=== PATIENT | female | born 1985 | race Hispanic/Latino ===

== ENCOUNTER 2019-10-31 05:01 | Inpatient (IN) ==
[2019-10-31] MEDS ORDERED: ZOFRAN IV PRN (05:03)
[2019-10-31] MEDS ORDERED: PEPCID PO PRN ×2 (05:03)
[2019-10-31] MEDS ORDERED: REGLAN PO PRN (05:03)
[2019-10-31] MEDS ORDERED: TYLENOL PO PRN (05:03)
[2019-10-31] MEDS ORDERED: PEPCID IV PRN (05:03)
[2019-10-31] MEDS ORDERED: KEFZOL 2 GM/D5W 2 GM/50 ML IVPB IV PRN (05:03)
[2019-10-31] MEDS ORDERED: STADOL IV PRN (05:03)
[2019-10-31] MEDS ORDERED: MINERAL OIL TOP PRN (05:06)
[2019-10-31] MEDS ORDERED: XYLOCAINE-MPF 1% INJ PRN ×2 (05:06→15:09)
[2019-10-31] MEDS ORDERED: SODIUM CHLORIDE 0.9% INJ SCH (05:15)
[2019-10-31] MEDS: LR 1,000 ML IV SCH ×4 (05:40→10:30)
[2019-10-31 06:02] LABS: URINE SOURCE VOIDED
[2019-10-31 06:16] LABS: BILIRUBIN URINE NEGATIVE (NEGATIVE); BLOOD URINE NEGATIVE (NEGATIVE); COLOR YELLOW; GLUCOSE URINE NEGATIVE (NEGATIVE); KETONE URINE NEGATIVE (NEGATIVE); LEUKOCYTES URINE NEGATIVE (NEGATIVE); NITRITE URINE NEGATIVE (NEGATIVE); PROTEIN URINE NEGATIVE (NEGATIVE); SP GRAVITY URINE 1.013; TURBIDITY URINE CLEAR (CLEAR); UROBILINOGEN URINE NORMAL (NORMAL)
[2019-10-31 06:19] LABS: UR AMPHETAMINES QUAL NONE DETECTED (NONE DETECT); UR BARBITUATES QUAL NONE DETECTED (NONE DETECT); UR BENZODIAZEPIN QUAL NONE DETECTED (NONE DETECT); UR CANNABINOIDS QUAL NONE DETECTED (NONE DETECT); UR COCAINE QUAL NONE DETECTED (NONE DETECT); UR METHADONE QUAL NONE DETECTED (NONE DETECT); UR OPIATES QUAL NONE DETECTED (NONE DETECT); UR OXYCODONE QUAL NONE DETECTED (NONE DETECT); UR PCP QUAL NONE DETECTED (NONE DETECT)
[2019-10-31] MEDS: PITOCIN 30 UNITS/NS 30 UNIT/500 ML IV.SOLN IV SCH ×2 (06:20→15:21)
[2019-10-31 06:23] LABS: BASO# 0.03 X1000 (0.0-0.2); BASO% 0.5 % (0.0-0.8); EOS# 0.03 X1000 (0.0-0.7); EOS% 0.5 % (0.0-10.0); HEMATOCRIT 33.7 % (37.0-47.0); HEMOGLOBIN 10.4 g/dL (12.0-16.0); LYMPH# 1.99 X1000 (1.2-3.4); LYMPH% 30.1 % (20.5-51.1); MCH 23.5 PG (27-31); MCHC 30.9 g/dL (33-37); MCV 76.2 FL (81-99); MONO# 0.66 X1000 (0.11-0.59); MPV 11.4 FL (7.4-10.4); NEUT% 58.9 % (42.2-75.2); PLT 194 X1000 (130-400); RBC 4.42 XMIL (4.2-5.4); RDW 14.1 % (11.5-14.5); WBC 6.61 X1000 (4.8-10.8)
[2019-10-31] MEDS ORDERED: CYKLOKAPRON 1,000 MG in NS 100 ML IV ONE (07:32)
[2019-10-31] MEDS ORDERED: HEMABATE IM ONE (07:33)
[2019-10-31] MEDS ORDERED: METHERGINE IV ONE (07:33)
[2019-10-31] MEDS ORDERED: NAROPIN 0.2% INJ ONE (07:45)
[2019-10-31] MEDS ORDERED: FENTANYL-BUPIV-NS 500 MCG-0.125% 250 ML EPIDURAL SCH (08:00)
[2019-10-31] MEDS ORDERED: EPHEDRINE ONE (08:52)
[2019-10-31] MEDS ORDERED: EPHEDRINE IV ONE ×3 (08:52→09:55)
[2019-10-31] MEDS ORDERED: SODIUM CHLORIDE 0.9% 10 ML ONE (08:53)
--- NOTE | 2019-10-31 09:25 | HISTORY AND PHYSICAL ---
ADMITTING PHYSICIAN: Dr. Princess Romo. CHIEF COMPLAINT: Here for induction. HISTORY OF PRESENT ILLNESS: Ms. Alaniz is a 34-year-old, G9, P7-0-1-7, at 39 weeks and 4 days, who presents for an elective induction of labor. She has received care this ; however, was late to care. This has been complicated by a grand multiparity, a short-interval , anemia, and rubella nonimmune status. She currently denies any contractions, vaginal bleeding, or leaking of fluid. She endorses movement. She is dated by an ultrasound performed at 21 weeks, with an estimated due date of 11/03/2019. She is status post flu and Tdap. She is GBS negative. OBSTETRIC HISTORY: 1. G1, spontaneous vaginal delivery at 40 weeks, male, 5 pounds 15 ounces, denies complications (07/2003). 2. G2, spontaneous vaginal delivery at 40 weeks, male, 5 pounds, denies complications (10/2005). 3. G3, spontaneous vaginal delivery at 40 weeks, female, 6 pounds, denies complications (05/2007). 4. G4, spontaneous vaginal delivery at 40 weeks, male, 6 pounds, denies complications (06/2009). 5. G5, spontaneous vaginal delivery at 40 weeks, 5 pounds, male, denies complications (10/2014). 6. G6, spontaneous vaginal delivery at 40 weeks, male, 6 pounds, denies complications (02/2016). 7. G7, spontaneous vaginal delivery at 40 weeks, female, 7 pounds, denies complications (03/2018). 8. G8, spontaneous at approximately 7 weeks with no D and C (01/22/2019). 9. G9 is the current . GYNECOLOGIC HISTORY: She denies any history of sexually transmitted infections. Menarche was at age 15. Pap smear negative in 2019. PAST MEDICAL HISTORY: Denies. MEDICATIONS: vitamin p.o. daily, ferrous sulfate 325 mg p.o. daily. ALLERGIES: No known drug allergies. PAST SURGICAL HISTORY: Denies. SOCIAL HISTORY: Denies tobacco, alcohol, or drug use. FAMILY HISTORY: Mother has a history of lymphoma. LABORATORY DATA: White blood cell count 6.6, hemoglobin 10.4, hematocrit 33.7, platelets 194,000. Urinalysis within normal limits. UDS negative. Blood type O positive, with negative antibody screen. RPR negative. HIV negative. Hepatitis B surface antigen negative. Urine gonorrhea and chlamydia negative. Rubella non-immune. PHYSICAL EXAMINATION: VITAL SIGNS: Temperature 96.6 degrees, heart rate 77, blood pressure 118/56, respiratory rate 18, oxygen saturation 99% on room air. GENERAL: Appears well, alert, in no acute distress. HEART: Regular rate and rhythm. LUNGS: No respiratory distress. Clear to auscultation bilaterally. ABDOMEN: Soft, gravid, nontender. PELVIC: Sterile vaginal exam shows cervix 4 cm dilated, 50% effaced, -3 station. EXTREMITIES: No clubbing, cyanosis, or edema. PRESENTATION: presentation vertex with bedside ultrasound. Estimated weight 3500 grams. heart tracing shows baseline 120, moderate variability, positive accelerations, no decelerations, tocometer negative. ASSESSMENT AND PLAN: A 34-year-old, G9, P7-0-1-7, at 39 weeks and 4 days, here for elective induction of labor with grand multiparity, short-interval , anemia, rubella nonimmune status, late to care. 1. Admit to Labor and Delivery. 2. Maternal/ status stable. 3. SVE 4/50/-3. Will start induction with intravenous Pitocin. 4. Group B streptococcus negative. 5. Anticipate vaginal delivery, estimated weight 3500 grams. 6. The patient may have epidural when she desires. 7. Anticipate vaginal delivery. [facility]
--- NOTE | 2019-10-31 12:18 | OB/GYN PROGRESS NOTE ---
- Subjective 34 yo at 39w4d EIOL with grand multiparity, SIP, RNI, anemia, late PNC Patient seen and examined. SVE: /-3. AROM performed without difficulty. Fluid clear and head well applied to cervix. She is pilo q2-3 minutes. She is comfortable s/p epidural placement. FHT: 130/mod/+accel/no decel [place]: Q2-3 min OB Physical Exam Vital Signs - 8 hr 10/31/19 05:45 10/31/19 07:00 10/31/19 11:00 Temperature 96.6 F L 97.2 F L 96.8 F L Pulse Rate 77 70 93 H Respiratory Rate 18 20 20 Blood Pressure 118/56 108/60 97/54 O2 Sat by Pulse Oximetry 99 100 100 - CONSTITUTIONAL General Appearance: appears well, alert, no apparent distress - HEAD, EARS, NOSE, MOUTH & THROAT HENMT: normocephalic/atraumatic - RESPIRATORY Respiratory: lungs clear, no respiratory distress - CARDIOVASCULAR Cardiovascular: regular rate, rhythm - GASTROINTESTINAL (ABDOMEN) Abdominal Exam: non tender, soft, other (gravid) - GENITOURINARY Cervica Dilation: /-3 - MUSCULOSKELETAL Extremity: normal range of motion - NEUROLOGIC Neurologic: grossly normal - PSYCHIATRIC Psych/Mental Status: normal mood/affect Active Medications Generic Name Dose Route Start Last Admin Trade Name Freq PRN Reason Stop Dose Admin Acetaminophen 650 mg 10/31/19 05:03 Tylenol PO Q4-6H PRN PRN Headache Butorphanol Tartrate 2 mg 10/31/19 05:03 Stadol IV PRN PRN Pain Famotidine 40 mg 10/31/19 05:03 Pepcid PO Q12H PRN PRN GI upset or indigestion Famotidine 20 mg 10/31/19 05:03 Pepcid IV Q12H PRN PRN GI upset or indigestion Famotidine 20 mg 10/31/19 05:03 Pepcid PO ONCE PRN PRN section Cefazolin Sodium/Dextrose 2 gm in 50 mls @ 50 mls/hr 10/31/19 05:03 Kefzol 2 Gm/D5w IV ONCE PRN PRN section Lactated Ringer's 1,000 mls @ 0 mls/hr 10/31/19 05:15 10/31/19 10:30 Lr IV 125 mls/hr .Q0M SAJAN Administration As Directed Oxytocin/Sodium Chloride 30 unit in 500 mls @ 0 mls/hr 10/31/19 05:15 10/31/19 06:20 Pitocin 30 Units/Ns IV 2 mls/hr .Q0M SAJAN Administration As Directed Fentanyl/Bupivacaine/Sodium Chlor 250 mls @ 0 mls/hr 10/31/19 08:00 10/31/19 08:18 Tyygzsbl-Hxlem-Xe 500 Mcg-0.125% EPIDURAL 12 mls/hr .Q0M SAJAN Administration As Directed Lidocaine HCl 30 ml 10/31/19 05:06 Xylocaine-Mpf 1% INJ PRN PRN At bedside for delivery Metoclopramide HCl 10 mg 10/31/19 05:03 Reglan PO ONCE PRN PRN section Mineral Oil 30 ml 10/31/19 05:06 Mineral Oil TOP PRN PRN At bedside for delivery Ondansetron HCl 4 mg 10/31/19 05:03 Zofran IV PRN PRN Nausea Sodium Chloride 5 - 10 ml 10/31/19 05:15 Sodium Chloride 0.9% INJ DIRECTED [facility] Laboratory Results - last 24 hr 10/31/19 10/31/19 10/31/19 05:40 05:40 05:40 WBC 6.61 RBC 4.42 Hgb 10.4 L Hct 33.7 L MCV 76.2 L MCH 23.5 L MCHC 30.9 L RDW Std Deviation 14.1 Plt Count 194 MPV 11.4 H Immature Gran % (Auto) 0.0 Neut % (Auto) 58.9 Lymph % (Auto) 30.1 [place] % (Auto) 10.0 H Eos % (Auto) 0.5 Baso % (Auto) 0.5 Immature Gran # (Auto) 0.00 Neut # (Auto) 3.90 Lymph # (Auto) 1.99 [place] # (Auto) 0.66 H Eos # (Auto) 0.03 Baso # (Auto) 0.03 Urine Source VOIDED Urine Color YELLOW Urine Turbidity CLEAR Urine pH 6.0 Ur Specific [place] 1.013 Urine Protein NEGATIVE Ur Glucose (Stick) NEGATIVE Ur Ketones (Stick) NEGATIVE Urine Blood NEGATIVE Urine Nitrite NEGATIVE Urine Bilirubin NEGATIVE Urobilinogen Dipstick NORMAL Urine Leukocytes NEGATIVE Urine Opiates Screen Ur Oxycodone Screen Ur Methadone, Qual Ur Barbiturates Screen Ur Phencyclidine Scrn Ur Amphetamines Screen U Benzodiazepines Scrn Urine Cocaine Screen U Cannabinoids Screen RPR NON-REACTIVE Blood Type Antibody Screen 10/31/19 10/31/19 05:40 05:40 WBC RBC Hgb Hct MCV MCH MCHC RDW Std Deviation Plt Count MPV Immature Gran % (Auto) Neut % (Auto) Lymph % (Auto) [place] % (Auto) Eos % (Auto) Baso % (Auto) Immature Gran # (Auto) Neut # (Auto) Lymph # (Auto) [place] # (Auto) Eos # (Auto) Baso # (Auto) Urine Source Urine Color Urine Turbidity Urine pH Ur Specific [place] Urine Protein Ur Glucose (Stick) Ur Ketones (Stick) Urine Blood Urine Nitrite Urine Bilirubin Urobilinogen Dipstick Urine Leukocytes Urine Opiates Screen NONE DETECTED Ur Oxycodone Screen NONE DETECTED Ur Methadone, Qual NONE DETECTED Ur Barbiturates Screen NONE DETECTED Ur Phencyclidine Scrn NONE DETECTED Ur Amphetamines Screen NONE DETECTED U Benzodiazepines Scrn NONE DETECTED Urine Cocaine Screen NONE DETECTED U Cannabinoids Screen NONE DETECTED RPR Blood Type O POSITIVE Antibody Screen NEGATIVE OB Assessment & Plan (1) Normal in multigravida in third trimester Status: Acute Plan: 34 yo at 39w4d EIOL with Grand multiparity, SIP, RNI, anemia, Late PNC 1. HD stable, afebrile 2. MF status stable 3. s/p AROM 4. s/p epidural 5. CEFM, [place] 6. Anticipate vaginal delivery
[2019-10-31] MEDS ORDERED: CYTOTEC PR ONE (15:00)
[2019-10-31] MEDS ORDERED: CYTOTEC ONE (15:00)
[2019-10-31] MEDS ORDERED: ATARAX PO PRN (15:09)
[2019-10-31] MEDS ORDERED: HYDROXYZINE IM PRN (15:09)
[2019-10-31] MEDS ORDERED: M-M-R II VACCINE SUBQ ONE (15:09)
[2019-10-31] MEDS ORDERED: PERI MEDS (DERMOPLAST/NUPERCAINAL/TUCKS) MISC PRN (15:09)
[2019-10-31] MEDS ORDERED: PITOCIN IM PRN (15:09)
[2019-10-31] MEDS ORDERED: BENADRYL IV PRN (15:09)
[2019-10-31] MEDS ORDERED: PERCOCET-5 PO PRN (15:09)
[2019-10-31] MEDS ORDERED: BOOSTRIX VACCINE IM ONE (15:09)
[2019-10-31] MEDS ORDERED: BENADRYL PO PRN (15:09)
[2019-10-31] MEDS ORDERED: PERCOCET-10 PO PRN (15:09)
[2019-10-31] MEDS ORDERED: CYTOTEC PO PRN (15:09)
[2019-10-31] MEDS ORDERED: AMBIEN PO PRN (15:09)
[2019-10-31] MEDS ORDERED: MINERAL OIL PO PRN (15:09)
[2019-10-31] MEDS ORDERED: PITOCIN 30 UNITS/NS 30 UNIT/500 ML IV.SOLN IV SCH (15:15)
[2019-10-31] MEDS ORDERED: PITOCIN 20 UNITS/NS 20 UNITS/1,000 ML IV.SOLN IV SCH (15:15)
[2019-10-31] MEDS: MOTRIN PO PRN ×2 (17:07→23:29)
--- NOTE | 2019-10-31 20:45 | OPERATIVE NOTE ---
PROCEDURE DATE: 10/31/2019 DELIVERY NOTE: PROCEDURE PERFORMED: Spontaneous vaginal delivery. DELIVERING PHYSICIAN: Julieta Romo DO. PROCEDURE IN DETAIL: A 34-year-old G9, P7-0-1-7, at 39 weeks and 4 days, presented for an elective induction of labor. Labor was induced with IV Pitocin. She received an epidural and AROM was performed at 12:05. Labor was uncomplicated. She underwent a spontaneous vaginal delivery of a vigorous viable male over intact perineum with Apgars 9 and 10. Infant delivered in TIERNEY presentation with a nuchal cord x1 that was reduced and a body cord noted after delivery. 's head, shoulders and body delivered with maternal pushing effort without difficulty. The cord was clamped and cut and the infant placed on the mother's chest. The placenta delivered spontaneously intact with a three-vessel cord. No lacerations were noted. She received 800 mcg of rectal Cytotec for bleeding. ESTIMATED BLOOD LOSS: Was 300 mL. ANESTHESIA: Epidural. DISPOSITION: Mother stable in recovery room.
[2019-10-31] MEDS: PERICOLACE PO SCH (23:28)
[2019-11-01 06:02] LABS: BASO# 0.02 X1000 (0.0-0.2); BASO% 0.3 % (0.0-0.8); EOS# 0.06 X1000 (0.0-0.7); EOS% 0.8 % (0.0-10.0); HEMATOCRIT 35.9 % (37.0-47.0); HEMOGLOBIN 11.2 g/dL (12.0-16.0); LYMPH# 1.34 X1000 (1.2-3.4); LYMPH% 18.5 % (20.5-51.1); MCH 24.1 PG (27-31); MCHC 31.2 g/dL (33-37); MCV 77.2 FL (81-99); MONO# 0.63 X1000 (0.11-0.59); MONO% 8.7 % (1.7-9.3); MPV 10.6 FL (7.4-10.4); NEUT# 5.19 X1000 (1.4-6.5); NEUT% 71.7 % (42.2-75.2); PLT 173 X1000 (130-400); RBC 4.65 XMIL (4.2-5.4); RDW 14.9 % (11.5-14.5); WBC 7.24 X1000 (4.8-10.8)
[2019-11-01] MEDS: MOTRIN PO PRN ×2 (09:51→17:54)
[2019-11-02] MEDS: PERICOLACE PO SCH (00:16)
[2019-11-02] MEDS: MOTRIN PO PRN (06:56)
--- NOTE | 2019-11-02 11:14 | DISCHARGE SUMMARY ---
ADMISSION DATE: 10/31/2019 DISCHARGE DATE: ADMITTING PHYSICIAN: Dr. Princess Romo. The patient was admitted for induction. She is a 34-year-old 9, para 3 at 39 weeks and 4 days. She has received care, however was late to care. This is a short-interval . She had anemia and immune rubella. The patient had an ultrasound dating 21 weeks. She is GBS negative. The patient delivered a full term living male child without any complications. Her course was totally benign. Her vital signs on discharge were a temperature of 96.6 degrees and blood pressure is 103/65. Her labs remained benign. Her hematocrit 35.9 and initially was 33.7. Her RPR was nonreactive and antibody screen was negative. The patient verbalized understanding of all discharge instructions and all questions were answered. She is discharged home with Miky and follow up with her private MD in 4-6 weeks. [facility]
[2019-11-02 16:54] VITALS: BP 128/62
== END 2019-11-02 18:15 | disposition home or self-care (01) | DRG 807 ==
LOC: LD 05:01
PROVIDERS: ADMIT Student in an Organized Health Care Education/Training Program; ATTEND Student in an Organized Health Care Education/Training Program